=== PATIENT | female | born 1960 | race Caucasian/White ===

== ENCOUNTER 2020-11-20 07:18 | Day surgery (SDC) | payer OTHER ==
[~2020-11-20 07:18] MED LIST: SODIUM CHLORIDE 0.9% 1000 ML 1,000 ML IV SCH
--- NOTE | 2020-11-20 07:56 | Anesthesia Consultation ---
Anesthesia Consult and Med Hx Date of service: 11/20/20 - Airway Anesthetic Teeth Evaluation: Good, Crowns ROM Head & Neck: Adequate Mental/Hyoid Distance: Adequate Mallampati Class: Class I Intubation Access Assessment: Good - Pulmonary Exam CTA: Yes - Pre-Operative Health Status ASA Pre-Surgery Classification: ASA2 Proposed Anesthetic Plan: MAC - Pulmonary Hx Smoking: No Hx Respiratory Symptoms: No - Cardiovascular System Hx Hypertension: Yes Hx Coronary Artery Disease: No Hx Heart Attack/AMI: No - Central Nervous System Hx Neuromuscular Disorder: No Hx Seizures: No Hx Psychiatric Problems: No - Gastrointestinal Hx Ulcer: Yes Hx Gastroesophageal Reflux Disease: Yes - Endocrine Hx Renal Disease: No Hx Liver Disease: No Hx Non-Insulin Dependent Diabetes: Yes Hx Thyroid Disease: No - Other Systems Hx Alcohol Use: No Hx Substance Use: No Hx Obesity: No - Additional Comments Anesthesia Medical History Comments: Patient denied previous anesthesia complications
--- NOTE | 2020-11-20 07:57 | Anesthesia Day of Surgery ---
Anesthesia Day of Surgery - Day of Surgery Patient Examined: Yes Patient H&P Reviewed: Yes Patient is NPO: Yes Beta Blockers: No Cardiac Clearance: No Pulmonary Clearance: No Young's Test: N/A
[2020-11-20] MEDS ORDERED: LIDOCAINE MPF (2%) 20 MG/1 ML VIAL 5 ML ONE (08:02)
[2020-11-20] MEDS ORDERED: ONDANSETRON 4 MG/2 ML INJ ONE (08:02)
[2020-11-20] MEDS ORDERED: fentaNYL 100 MCG/2 ML INJ ONE (08:02)
[2020-11-20] MEDS ORDERED: propofoL 200 MG/20 ML VIAL IV ONE ×2 (08:02→09:00)
--- NOTE | 2020-11-20 09:34 | Procedure Note ---
Date of procedure: 11/20/20 Pre-op diagnosis: Dyspepsia/ colon Polyp Screening Post-op diagnosis: other (Moderate, Daniella Esophagitis/ Mild to Moderate Erosive Esophagitis/ Gastritis/ Colon Polyps (x3)/No Diverticular DFisease/Normal, Ileal Mucosa/ Minor, Internal Hemorrhoids) Procedure: EGD with biopsy and Colonoscy with Cold and Hot Snare Polypectomy and Cold Biopsy Anesthesia: [facility] [place] Surgeon: TERESITA HUDSON Estimated blood loss: minimal Pathology: list Specimen disposition: to lab Condition: stable Disposition: same day (Avoid aspirin and NSAID for 5 days; otherwise resume home medication. Treat with with PPI and Fluconazole and follow up in 1 to 2 weeks ([phone]).)
--- NOTE | 2020-11-20 09:46 | Operative Report ---
DATE OF SURGERY: 11/20/2020 INDICATIONS: This is a 60-year-old [place] female originally from [facility]. She had an EGD done, which showed presence of Daniella esophagitis and gastritis, but no peptic ulcer disease. Colonoscopy was done as part of colon polyp screening. Initial rectal examination was unremarkable. DESCRIPTION OF PROCEDURE: Instrument was passed through the rectum onto the cecum, which was identified with ileocecal valve and appendiceal orifice. Visualization was fair to good. Terminal ileum was intubated, showed normal mucosa. The cecum was also viewed on the retroverted view and no additional pathology was noted. At the time of the withdrawal in the cecum, there was a 12 mm sessile polyp noted that was removed by hot snare polypectomy and it could not be suctioned. It was caught with cold biopsy forceps, but could not be brought into the channel, so the scope had to be withdrawn and the polyp retrieved. The scope was then reintroduced and in the transverse colon, there was another smaller polyp noted, which was about 6-7 mm in diameter removed by cold biopsy with minimal bleeding. The remaining part of the transverse colon showed normal mucosa and in the descending colon, there was another 9 mm polyp that was removed by cold snare polypectomy and retrieved, again with minimal bleeding. There was no diverticular disease noted and the rectum showed some minor internal hemorrhoid. ASSESSMENT: Colon polyp screening 3 polyps noted, one in the ascending colon, one in the descending colon and one in the transverse colon. There was some minor internal hemorrhoid, normal ileal mucosa and no diverticular disease. No diverticula noted. PLAN: To have the patient to avoid aspirin and aspirin-related products, treat the patient for about 5 days. Treat the patient with fluconazole because of the EGD findings of Daniella esophagitis and PPI because of the esophagitis and gastritis. Have the patient follow up in the office in 1-2 weeks' time. Procedure was done in the GI lab with assistance of the GI lab team, which included the GI nurse, instrumentation and controls technician and with assistance of anesthesia. TID: [id number] RECEIPT: [id number] ABY/ASAD
--- NOTE | 2020-11-20 09:49 | Operative Report ---
DATE OF SURGERY: 11/20/2020 PROCEDURE PERFORMED: EGD with biopsy. INDICATIONS: This is a 60-year-old [place] female originally from [facility] who has been having dyspeptic symptoms. She had an EGD done to assess for any upper GI pathology. DESCRIPTION OF PROCEDURE: Procedure was done after getting informed consent with MAC anesthesia. The instrument was passed through the hypopharynx into the esophagus, which showed moderate Daniella esophagitis. Photodocumentation and biopsy was obtained. The distal esophagus showed some [id number] distal erosive esophagitis. Biopsy was done from the distal esophagus. The stomach showed gastritis. Additional biopsy was done from the gastric antrum, gastric body and angular incisura. The pylorus was patent. The duodenum in first and the second portion appeared normal. ASSESSMENT: Dyspepsia, moderate Daniella esophagitis, mild to moderate Erosive esophagitis, and gastritis. PLAN: To treat the patient with PPI and fluconazole, avoid aspirin and aspirin-related products for the next few days and to do a colonoscopy as part of colon polyp screening. Procedure was done in the GI lab with assistance of the GI lab team, which included the GI nurse, studio technician video operator and with assistance of Anesthesia. TID: [id number] RECEIPT: [id number] [facility]
[2020-11-20 10:36] VITALS: BP 96/59
--- NOTE | 2020-11-20 14:46 | Post Anesthesia Evaluation ---
- Post Anesthesia Evaluation Patient Participated: Yes Airway Patent: Yes Stable Respiratory Function: Yes Nausea/Vomiting: No Temp > 96.8F: Yes Pain Manageable: Yes Adequeate Hydration: Yes Anesthesia Complications: No Block Receding Appropriately: Not Applicable Patient on Ventilator: No
== END 2020-11-20 10:10 | disposition home or self-care (01) ==
LOC: GIO 07:18
DX: Z12.11 Encounter for screening for malignant neoplasm of colon (principal); R13.10 Dysphagia, unspecified; K63.5 Polyp of colon; K64.0 First degree hemorrhoids; K57.30 Diverticulosis of large intestine without perforation or abscess without bleeding; K21.00 Gastro-esophageal reflux disease with esophagitis, without bleeding; K29.50 Unspecified chronic gastritis without bleeding; K31.89 Other diseases of stomach and duodenum; K63.89 Other specified diseases of intestine; I10 Essential (primary) hypertension; E11.9 Type 2 diabetes mellitus without complications; Z79.84 Long term (current) use of oral hypoglycemic drugs; Z79.899 Other long term (current) drug therapy; Z98.890 Other specified postprocedural states
CPT/HCPCS: 43239; 45380; 45385; 82962; 88305; 88342; J2405; J2704; J3010; J7030